=== PATIENT | female | born 1945 | race Caucasian/White ===

== ENCOUNTER 2017-02-26 15:54 | Inpatient (IN) ==
--- NOTE | 2017-02-26 16:47 | PROVIDER DOCUMENTATION ---
HPI-Abdominal Pain/GI Problem - General Chief Complaint: General Adult Stated Complaint: TROUBLE SWALLOWING Time Seen by Provider: 02/26/17 16:05 Source: patient Unable to obtain history due to:: urgency Allergies/Adverse Reactions: Patient Allergies Allergy/AdvReac Type Severity Reaction Status Date / Time Iodinated Contrast- Oral and AdvReac Unknown REDNESS Verified 02/26/17 16:26 IV Dye AND BLISTERS Home Medications: Home Medication List Medication Instructions Recorded Confirmed Last Taken Type Albuterol Sulfate [Proair Hfa] 1 puff IH Q4H PRN PRN 03/07/15 02/26/17 Unknown History Allopurinol 100 mg PO DAILY 03/07/15 02/26/17 04/13/15 07:00 History Cyanocobalamin (Vitamin B-12) 1,000 mcg IM Q30D 03/07/15 02/26/17 02/14/15 History [Vitamin B-12] Diazepam 2 mg PO HS 03/07/15 02/26/17 04/12/15 19:00 History Dicyclomine HCl 10 mg PO 4XDAY PRN 03/07/15 02/26/17 04/12/15 19:00 History Escitalopram [Lexapro] 10 mg PO DAILY 03/07/15 02/26/17 04/13/15 07:00 History Gabapentin 300 mg PO TID 03/07/15 02/26/17 04/13/15 07:00 History Hydrocodone/Acetaminophen [[place] 1 each PO Q4-6H PRN PRN 03/07/15 02/26/1704/13 08:30 History 7.5-325 Tablet] Levothyroxine [Synthroid] 137 microgm PO DAILY 03/07/15 02/26/17 04/13/15 07:00 History Loperamide [Imodium] 4 mg PO PRN PRN 03/07/15 02/26/17 03/02/15 History Oxybutynin Chloride 5 mg PO 4XDAY 03/07/15 02/26/17 03/06/15 History Promethazine HCl 25 mg PO Q6H PRN PRN 03/07/15 02/26/17 03/06/15 History SIMVAstatin [Zocor] 20 mg PO QHS 03/07/15 02/26/17 04/12/15 19:00 History Pantoprazole [Protonix] 40 mg PO DAILY@0700 #30 tablet 03/16/15 02/26/17 07:00 Rx Metronidazole [Flagyl] 500 mg PO TID #30 tablet 04/13/15 02/26/17 Unknown Rx - History of Present Illness-ABD Nature of Presenting Problems: Mrs. Beyer comes today c/o having trouble swallowing. For the last 3 days, she has had trouble swallowing solids, today at 11:30am she was eating vegetables with meat, and thinks that the food bolus is stuck in her esophagus. Pt states that about 1-2 yrs ago she had an esophageal dilation done in [place]. Pt's called Dr. Samuel's office today from gastroenterology , and pt was instructed to come to the ED. Abdominal Pain Onset Location: reports: other (no pain) Pain Radiation: reports: no radiation Quality of Pain: reports: none Onset/Duration: reports: 4-6 hours ago Timing: reports: still present Activities at Onset: reports: eating Exposure to sick contacts?: No Modifying Factors: improves with: eating Associated Symptoms: reports: nausea Review of Systems - Adult - REVIEW OF SYSTEMS - ADULT Constitutional: reports: no symptoms reported Eyes: reports: no symptoms reported Ears, Nose, Mouth & Throat: reports: no symptoms reported Cardiovascular: reports: no symptoms reported Respiratory: reports: no symptoms reported Gastrointestinal: reports: other (unable to swallow) Genitourinary: reports: no symptoms reported Musculoskeletal: reports: no symptoms reported Integumentary: reports: no symptoms reported Neurological: reports: no symptoms reported Psychiatric: reports: no symptoms reported Endocrine: reports: no symptoms reported Hematologic/Lymphatic: reports: no symptoms reported Allergic/Immunologic: reports: no symptoms reported All Other Systems: Reviewed and Negative Past History - Adult - PAST MEDICAL HISTORY-ADULT Review of Records: reports: Old Records Reviewed (DM2, HTN, DVT, asthma, hypothyroidism), Nursing Assessment Review, Medications Reviewed, Social history reviewed & non-contributory. Cardiovascular: reports: HTN, hyperlipidemia Respiratory: reports: asthma Gastrointestinal: reports: diverticulosis, GERD, IBS, polyps Musculoskeletal: reports: fibromyalgia Psychiatric: reports: depression Endocrine/Immune: reports: Diabetes, thyroid disorder (hypo) - PRIOR SURGERIES/PROCEDURES Surgical/Procedure History: reports: EGD, cholecystectomy, hysterectomy, indwelling device - IMMUNIZATION STATUS Childhood Immunizations: See Nurse Assessment Flu Vaccine: See Nurse Assessment Physical Exam-General - PHYSICAL EXAM-ADULT Initial Vital Signs Reviewed: Yes - CONSTITUTIONAL General Appearance: appears well, alert, no apparent distress - EYES Eyes: PERRL/EOMI, pink conjunctivae - HEAD, EARS, NOSE, MOUTH & THROAT HENMT: normocephalic/atraumatic, moist mucous membranes - NECK Neck: non-tender, supple - RESPIRATORY Respiratory: lungs clear, normal breath sounds, no respiratory distress - CARDIOVASCULAR Cardiovascular: regular rate, rhythm, no edema, no JVD - GASTROINTESTINAL (ABDOMEN) Abdominal Exam: non tender, soft - MUSCULOSKELETAL Back Exam: normal inspection, no CVA tenderness Extremity: non-tender, normal gait - SKIN Integumentary: normal color - NEUROLOGIC Neurologic: grossly normal - PSYCHIATRIC Psych/Mental Status: normal mood/affect Progress - PLAN OF CARE/RESULTS Progress/Plan/Lab Results: Vital Signs - 8 hr 02/26/17 16:01 Temperature 98.2 F Pulse Rate 60 Respiratory Rate 16 Blood Pressure 151/75 O2 Sat by Pulse Oximetry 98 - REASSESSMENT Reassessment #1 Status: unchanged (denies nausea, does not want medication) - CONSULTS/PCP/HOSPITALIST Notification #1 *Consult/PCP/Hospitalist*: Dr. Gutierrez Consult Disposition: other (Dr. Gutierrez will talk to Dr. Samuel to discuss plan. Recs: IV line insertion since pt may need upper endoscopy today) #2 Consult: Dr. Smauel Consult Disposition: Admit (admit under hospitalist, EGD tomorrow, NPO after midnight) Departure - Departure Date of Disposition Decision: 02/26/17 Time of Disposition Decision: 17:54 DIAGNOSIS: Dysphagia Qualifiers: Dysphagia type: esophageal phase Qualified Code(s): R13.10 - Dysphagia, unspecified Disposition: ADMITTED INPATIENT 09 Certified Medical Emergency: Emergent Condition: Stable Referrals and Follow-Ups: Kp Meraz MD [Primary Care Provider] - - Critical Care Note This patient required my direct & personal management of CC.: No Attestation - Physician/ ERASTO Attestation Patient care was provided by Advanced Practice Provider:: No The physician spent face to face time with patient:: Yes Advanced Practice Provider documentation review:: Supervising physician onsite and consulted in the evaluation and care of this patient. The physician did have a face to face encounter with the patient.
[2017-02-26 18:14] LABS: MANUAL DIFF NEEDED? NO
[2017-02-26 18:25] LABS: BASO% 0.5 % (0.0-0.8); EOS# 0.41 X1000 (0.0-0.7); EOS% 5.1 % (0.0-10.0); HEMATOCRIT 42.7 % (37.0-47.0); HEMOGLOBIN 14.4 g/dL (12.0-16.0); LYMPH# 2.77 X1000 (1.2-3.4); LYMPH% 34.8 % (20.5-51.1); MCH 32.1 PG (27-31); MCHC 33.7 g/dL (33-37); MCV 95.3 FL (81-99); MONO# 0.73 X1000 (0.11-0.59); MONO% 9.2 % (1.7-9.3); MPV 11.3 FL (7.4-10.4); NEUT% 50.4 % (42.2-75.2); PLT 218 X1000 (130-400); RBC 4.48 XMIL (4.2-5.4)
--- NOTE | 2017-02-26 18:25 | Diag Imaging Result Doc PS360 ---
CHEST-PORTABLE - 02/26/2017 INDICATION: question of aspiration TECHNIQUE: COMPARISON: 03/13/2015 FINDINGS: There is a new metallic density projecting over the right lung base. This is round and measures about 3 mm and appears as a BB. Otherwise, the lungs are clear. Heart size is normal. No pneumothorax or pleural effusion. IMPRESSION: Indeterminate metallic body, probably a BB, projecting over the right lung base. Electronically signed by Moses Snow 02/26/2017 6:22 PM
[2017-02-26 18:36] LABS: AGAP 12; ALBUMIN 4.2 g/dL (3.5-5.0); ALKALINE PHOSPHATASE 82 U/L (32-104); BUN 10 mg/dL (8-22); CALCIUM 9.2 mg/dL (8.8-10.2); CHLORIDE 104 mmol/L (98-107); COSMO 287; GOT 21 U/L (10-30); GPT 19 U/L (10-36); POTASSIUM 4.5 mmol/L (3.5-5.1); SODIUM 144 mmol/L (136-145); TCO2 28 mmol/L (25-35); TOTAL BILIRUBIN 0.18 mg/dL (0.20-1.00); TOTAL PROTEIN 7.3 g/dL (6.3-8.3)
[2017-02-26] MEDS ORDERED: ZOFRAN IV PRN (23:45)
[2017-02-26] MEDS: NS 1,000 ML IV SCH (23:45)
[2017-02-26] MEDS ORDERED: TYLENOL PO PRN (23:45)
[2017-02-26] MEDS ORDERED: VENTOLIN HFA INH PRN (23:45)
[2017-02-27 07:27] LABS: INR 1.01; PROTIME 10.6 Seconds (9.2-11.7); PTT 25.4 Seconds (22.0-36.0)
[2017-02-27] MEDS ORDERED: APRESOLINE IV PRN (07:36)
[2017-02-27] MEDS: NS 1,000 ML IV SCH (08:04)
[2017-02-27 08:05] LABS: MCH 32.3 PG (27-31); MCHC 33.3 g/dL (33-37); MPV 10.6 FL (7.4-10.4); RBC 4.33 XMIL (4.2-5.4)
[2017-02-27 08:31] LABS: AGAP 12; BUN 8 mg/dL (8-22); CALCIUM 8.8 mg/dL (8.8-10.2); CHLORIDE 107 mmol/L (98-107); COSMO 292; POTASSIUM 3.8 mmol/L (3.5-5.1); SODIUM 146 mmol/L (136-145); TCO2 27 mmol/L (25-35)
[2017-02-27] MEDS ORDERED: 1/2 NS 1,000 ML IV SCH (08:31)
--- NOTE | 2017-02-27 09:26 | HISTORY AND PHYSICAL ---
INCOMPLETE REPORT-DICTATION STARTS HERE PRIMARY CARE PHYSICIAN: Dr. Lesia August CHIEF COMPLAIN: Difficulty with swallowing. HISTORY OF PRESENT ILLNESS: Ms. Beyer is a 71-year-old female with a past medical history of diabetes, hyperlipidemia, hypertension, hypothyroid, dysphagia who presented in the ER with 3 day history of increasing difficulty with swallowing. She has a history of significant dysphagia in the past. She had gone through several episodes of esophageal stretching and even with some stomach surgery done at [place] to help with symptoms. She describes these last 3 days after eating some vegetables and then she felt there was something stuck in the esophagus. It was getting worse today and so she cannot even swallow water, but she is able to swallow the saliva. She denies any other symptoms like chest pain, short of breath, abdominal pain and choking sensation. She did contact her contact lens polisher, Dr. Samuel and recommended to come to the ER for evaluation and also possible endoscope to removed the obstruction if there is one. So patient will be admitted in the hospital for possible endoscopy. PAST MEDICAL HISTORY: 1. Asthma. 2. Diabetes type 2. 3. Hyperlipidemia. 4. Hypertension. 5. Hypothyroidism. 6. Gout. 7. DVT 8. Depression. 9. Esophageal stricture. PAST SURGICAL HISTORY: 1. Cholecystectomy. 2. Hysterectomy. 3. Cataract. 4. Stomach surgery. SOCIAL HISTORY: The patient denies smoking, denies drinking alcohol or illicit drugs. FAMILY HISTORY: Positive for dementia. Positive for breast cancer. ALLERGIES: IV or oral contrast. HOME MEDICINES: Albuterol inhaler 1 puff every 4 hours as needed. Allopurinol 100 mg p.o. daily. Vitamin B12 1000 mcg IM every month. Diazepam 2 mg 1 p.o. at bedtime. Bentyl 10 mg 4 times a day as needed. Lexapro 10 mg p.o. daily. Gabapentin 300 mg p.o. t.i.d. Levothyroxine 137 mcg p.o. daily. Imodium 4 mg p.o. p.r.n. Oxybutynin 5 mg p.o. 4 times daily. Protonix 40 mg p.o. daily. Promethazine 25 mg p.o. q.6 hours as needed. Zocor 20 mg p.o. at bedtime. Xarelto 20 mg at bedtime. Diabetes medicine, patient could not remember the name. INCOMPLETE REPORT-DICTATION ENDS HERE cc: Tressa Cordero MD
[2017-02-27] MEDS ORDERED: FENTANYL ONE (10:22)
[2017-02-27] MEDS ORDERED: XYLOCAINE-MPF 2% ONE (10:23)
[2017-02-27] MEDS ORDERED: DIPRIVAN 1% ONE (10:23)
[2017-02-27] MEDS ORDERED: DIFLUCAN PO ONE (11:30)
[2017-02-27 13:29] VITALS: BP 150/76
--- NOTE | 2017-02-27 21:50 | HISTORY AND PHYSICAL ---
ADDENDUM: REVIEW OF SYSTEM: A 10-point review of system obtained from the patient. Please see the HPI for pertinent positive and negative. PHYSICAL EXAMINATION: VITAL SIGNS: Temperature 98.2. Heart rate is 60, respiratory rate 16, blood pressure 151/75. Pulse ox 98% on room air. GENERAL: This is a very pleasant female, lying on the bed without any acute distress. HEENT: Atraumatic. Eyes PERRLA. EOMI. Oral mucosa slightly dry and there is no obvious foreign body I can see from the left pharynx. NECK: Supple. No JVD. CHEST: Clear to auscultation bilaterally. No chest wall tenderness. CARDIAC: Normal heart sounds. S1, S2 normal. No murmur. ABDOMEN: Soft, nontender, nondistended. No rebound. LOWER EXTREMITIES: No edema, no clubbing. No cyanosis. NEUROLOGICAL: Alert and oriented x4. Cranial nerves intact. Good muscle tone in both lower extremities and upper extremities. ASSESSMENT AND PLAN: 1. Dysphagia. The patient is going to have endoscopy tomorrow to evaluate for dysphagia and Dr. Samuel is already on board. 2. Hypertension. 3. Diabetes. 4. History of a DVT. At this point, we are we are going to hold her home medicine, given she cannot swallow and also this procedure in the morning. We will use SCD for DVT prophylaxis. Further plan depends on the clinical course. cc: Tressa Cordero MD
--- NOTE | 2017-03-02 05:39 | OPERATIVE NOTE ---
PROCEDURE DATE: 02/27/2017 REFERRING PHYSICIAN: Lesia August DO She is currently followed by Kelsey Garrido MD. INDICATIONS FOR PROCEDURE: 1. Dysphagia. 2. Food impaction. PROCEDURE PERFORMED: Esophagogastroduodenoscopy. CONSENT: Informed consent was obtained from the patient prior to the procedure. The risks, benefits, and alternatives were discussed with the patient and her children. MEDICATION: The patient received monitored anesthesia care. PERFORMING PHYSICIAN: Patricia Samuel MD ASSISTANTS: 1. [facility] 2. Laine Coon RN 3. Justice Thapa CRNA 4. Chris Crooks MD (Anesthesia) COMPLICATIONS: There were no complications. ESTIMATED BLOOD LOSS: None. SPECIMENS REMOVED: None. FINDINGS: After sedation was achieved, the upper endoscope was inserted to the 2nd portion of the duodenum. The hypopharynx appeared endoscopically normal. In the tubular esophagus, there were whitish plaques consistent with Kamla esophagitis. There was a superficial whitish base ulcer at 30 cm from the incisors. There was no stigmata of bleeding. The GE junction, as well as a Schatzki's ring were found at 35 cm from insertion. There was a hiatal hernia that spanned from 35-40 cm. In the gastric lumen, there were erosions with old heme consistent with erosive gastritis. There was greater than 200 mL of retained bilious secretions in the fundus and body. On retroflexed view, there were surgical changes consistent with a Schuyler fundoplication. In addition, the retained food bolus that resulted in the food impaction was found in the fundus. It had passed spontaneously. The food bolus remains in the fundus. On forward view, the pylorus appeared normal. The 1st and 2nd portion of the duodenum appeared normal as well. There was no evidence of Rob's esophagus or esophageal varices on this exam today. After the exam was complete, lumen was decompressed and the scope was removed without incident. IMPRESSION: 1. Kamla esophagitis. 2. Esophageal ulcer. 3. Schatzki's ring with ulcerations at 35 cm. 4. Hiatal hernia. 5. Erosive gastritis. 6. Gastric stasis. 7. Surgical changes consistent with a prior Schuyler fundoplication. RECOMMENDATIONS: 1. Begin Diflucan with 200 mg today, followed by 100 mg daily for 20 days, for total of 21 days of treatment. 2. The patient has been steroid inhaler for her chronic obstructive pulmonary disease. She was asked to use a Listerine Mouthwash following each inhalation. 3. Begin full liquid to soft liquids overnight. We will advance her diet as tolerated. 4. Begin Carafate 1 g 4 times a day for 12 weeks. 5. Continue Protonix. 6. We will schedule the patient for an outpatient esophagogastroduodenoscopy with dilation in 12 weeks. 7. We will have the patient return to clinic in 4 weeks to assess interval progress. cc: MD Kelsey Porter MD
== END 2017-02-27 13:00 | disposition home or self-care (01) ==
LOC: ED 15:54 → EDIPHOLD 22:44 → SUATTDRO 22:44 → EDIPHOLD 02-27 14:33
PROVIDERS: ATTEND Internal Medicine